=== PATIENT | male | born 1970 | race Caucasian/White ===

== ENCOUNTER 2021-12-24 18:00 | Inpatient (IN) | payer MEDICARE, OTHER ==
[2021-12-24 18:34] LABS: #Basophils 0.1 thou/uL (0.0-0.2); #Eosinphils 0.2 thou/uL (0.0-0.7); #Lymphocytes 4.6 thou/uL (1.20-3.40); #Monocytes 0.7 thou/uL (0.11-0.59); #Neutrophils 4.8 thou/uL (1.40-6.50); %Basophils 0.8 % (0.0-1.0); %Eosinophils 2.2 % (0.0-10.0); %Lymphocytes 43.8 % (21.0-51.0); %Monocytes 6.8 % (0.0-10.0); %Neutrophils 46.4 % (42.0-75.0); Hemoglobin 14.7 g/dL (14.0-18.0); Mean Corpuscular HGB CONC 32.4 g/dL (32.0-36.0); Mean Corpuscular Volume 89.4 fL (78.0-98.0); Mean Platelet Volume 7.9 fL (7.4-10.4); Platelet Count 329 thou/uL (130-400); RBC Distribution Width 12.7 % (11.5-14.5); Red Blood Cell (RBC) Count 5.07 mill/uL (4.70-6.10); White Blood Cell (WBC) Count 10.4 thou/uL (4.8-10.8)
[2021-12-24 19:02] LABS: ALT (SGPT) 48 U/L (8-55); AST (SGOT) 27 U/L (5-34); Albumin 4.1 g/dL (3.5-5.0); Alkaline Phosphatase 129 U/L (40-110); Anion Gap 16 mmol/L (10-20); BUN (Urea Nitrogen) 14 mg/dL (8.4-25.7); Bilirubin, Total 0.4 mg/dL (0.2-1.2); Calc. Creatinine Clearance 0 mL/min (70-130); Carbon Dioxide 22 mmol/L (22-29); Chloride 107 mmol/L (98-107); Estimated GFR 84; Globulin 3.5 g/dL (2.4-3.5); Glucose 118 mg/dL (70-105); Protein, Total 7.6 g/dL (6.0-8.3); Sodium 141 mmol/L (136-145)
[2021-12-24] MEDS ORDERED: Bisacodyl 5 MG TAB PO PRN (22:16)
[2021-12-24] MEDS ORDERED: HYDROcodone/Acetaminophen 7.5/325 mg Tablet PO PRN (22:16)
[2021-12-24] MEDS ORDERED: Dextrose 5% in Water 1,000 ML IV PRN (22:16)
[2021-12-24] MEDS ORDERED: Zolpidem Tartrate 5 MG TAB PO PRN (22:16)
[2021-12-24] MEDS ORDERED: Dextrose 50% Abboject 50 ML SYRINGE SLOW IVP PRN (22:16)
[2021-12-24] MEDS ORDERED: Acetaminophen 325 MG TAB PO PRN (22:16)
[2021-12-24] MEDS ORDERED: HumaLOG 300 UNITS/3 ML VIAL SC PRN ×2 (22:16)
[2021-12-24] MEDS ORDERED: Ondansetron PF 4 MG/2 ML Vial IVP PRN (22:16)
[2021-12-24] MEDS ORDERED: hydrALAZINE 20 MG/ML VIAL SLOW IVP PRN (22:18)
[2021-12-24] MEDS ORDERED: Nitroglycerin 0.4 MG TAB (25 Tab Bottle) SL PRN (22:18)
[2021-12-24] MEDS ORDERED: Morphine 2 MG/ML VIAL SLOW IVP PRN (22:18)
[2021-12-24] MEDS ORDERED: Sodium Chloride 0.9% 1,000 ML IV SCH (22:30)
[2021-12-24] MEDS ORDERED: Clopidogrel Bisulfate 75 MG TAB PO SCH (22:45)
[2021-12-24 22:50] LABS: Troponin I Less than 0.010 ng/mL (< 0.028)
[2021-12-25 00:23] VITALS: BMI 44.4
[2021-12-25 02:01] LABS: Troponin I Less than 0.010 ng/mL (< 0.028)
[2021-12-25 05:48] LABS: #Basophils 0.1 thou/uL (0.0-0.2); #Eosinphils 0.2 thou/uL (0.0-0.7); #Lymphocytes 3.3 thou/uL (1.20-3.40); #Monocytes 0.7 thou/uL (0.11-0.59); #Neutrophils 5.8 thou/uL (1.40-6.50); %Basophils 0.7 % (0.0-1.0); %Eosinophils 2.1 % (0.0-10.0); %Lymphocytes 32.8 % (21.0-51.0); %Monocytes 7.2 % (0.0-10.0); %Neutrophils 57.2 % (42.0-75.0); Mean Corpuscular HGB CONC 31.2 g/dL (32.0-36.0); Mean Corpuscular Hemoglobin 27.9 pg (27.0-31.0); Mean Corpuscular Volume 89.3 fL (78.0-98.0); Mean Platelet Volume 8.3 fL (7.4-10.4); Platelet Count 286 thou/uL (130-400); RBC Distribution Width 12.7 % (11.5-14.5); Red Blood Cell (RBC) Count 4.67 mill/uL (4.70-6.10); White Blood Cell (WBC) Count 10.1 thou/uL (4.8-10.8)
[2021-12-25 06:26] LABS: ALT (SGPT) 48 U/L (8-55); AST (SGOT) 25 U/L (5-34); Albumin 3.7 g/dL (3.5-5.0); Alkaline Phosphatase 115 U/L (40-110); Anion Gap 14 mmol/L (10-20); BUN (Urea Nitrogen) 13 mg/dL (8.4-25.7); Bilirubin, Total 0.4 mg/dL (0.2-1.2); Calc. Creatinine Clearance 192 mL/min (70-130); Carbon Dioxide 24 mmol/L (22-29); Chloride 106 mmol/L (98-107); Estimated GFR 104; Glucose 109 mg/dL (70-105); Protein, Total 6.7 g/dL (6.0-8.3); Sodium 140 mmol/L (136-145)
[2021-12-25 06:29] LABS: Troponin I Less than 0.010 ng/mL (< 0.028)
[2021-12-25] MEDS ORDERED: Communication Order-Pharmacy FS SCH (08:45)
[2021-12-25] MEDS ORDERED: Iopamidol 370 76% 100 ML VIAL ONE (08:53)
[2021-12-25] MEDS ORDERED: Enoxaparin Sodium 40 MG/0.4 ML SYRINGE SC SCH (09:00)
[2021-12-25] MEDS ORDERED: SERTRALINE HCL 150 MG PO SCH (09:00)
[2021-12-25] MEDS ORDERED: Non-Formulary Item 1 EACH (Cetirizine Hcl [Allergy Relief] 10 MG Capsule) PO SCH (09:00)
[2021-12-25] MEDS ORDERED: MULTIVITAMIN PO SCH (09:00)
[2021-12-25] MEDS: busPIRone HCl 10 MG TAB PO SCH ×3 (09:41→20:02)
[2021-12-25] MEDS: Aspirin 325 MG TAB PO SCH (09:41)
[2021-12-25] MEDS: Multivit, Therapeutic 1 TAB PO SCH (09:42)
[2021-12-25] MEDS: Losartan 25 MG TAB PO SCH (09:42)
[2021-12-25] MEDS: Loratadine 10 MG TAB PO SCH (09:42)
[2021-12-25] MEDS: Clopidogrel Bisulfate 75 MG TAB PO SCH (09:42)
[2021-12-25] MEDS ORDERED: Midazolam HCl 2 mg/2 ml Vial ONE (11:34)
[2021-12-25] MEDS ORDERED: Lidocaine 1% (PF) 30 ML VIAL ONE (11:34)
[2021-12-25] MEDS ORDERED: Fentanyl 100 MCG/2 ML VIAL ONE (11:34)
[2021-12-25] MEDS ORDERED: Sodium Chloride 0.9% 200 ML IV PRN (13:27)
[2021-12-25] MEDS ORDERED: Gabapentin 300 MG CAP PO SCH (21:00)
[2021-12-25] MEDS ORDERED: Atorvastatin Calcium 20 MG TAB PO SCH (21:00)
[2021-12-25] MEDS ORDERED: PRAZOSIN HCL 2 MG PO SCH (21:00)
[2021-12-25] MEDS ORDERED: Prazosin HCl 1 MG CAP PO SCH (21:00)
[2021-12-25] MEDS ORDERED: Mirtazapine 30 MG TAB PO SCH (21:00)
[2021-12-25] MEDS ORDERED: Rizatriptan Benzoate 10 MG MLT TAB PO SCH (21:00)
[2021-12-26 08:09] VITALS: BP 137/75; TEMP 97.8
[2021-12-26] MEDS: Aspirin 325 MG TAB PO SCH (08:47)
[2021-12-26] MEDS: busPIRone HCl 10 MG TAB PO SCH (08:48)
[2021-12-26] MEDS: Clopidogrel Bisulfate 75 MG TAB PO SCH (08:48)
[2021-12-26] MEDS: Losartan 25 MG TAB PO SCH (08:49)
[2021-12-26] MEDS: Loratadine 10 MG TAB PO SCH (08:51)
[2021-12-26] MEDS: Multivit, Therapeutic 1 TAB PO SCH (08:52)
== END 2021-12-26 11:10 | disposition home or self-care (01) | DRG 287 ==
LOC: ERS 18:00 → 2SW 21:26 → OBSVTOIN 12-25 17:15
PROVIDERS: ADMIT Internal Medicine; ATTEND Hospitalist
PROC: 4A023N7 Measurement of Cardiac Sampling and Pressure, Left Heart, Percutaneous Approach (ICD-10-PCS; principal; 2021-12-25)
PROC: B2111ZZ Fluoroscopy of Multiple Coronary Arteries using Low Osmolar Contrast (ICD-10-PCS; 2021-12-25)
PROC: B2151ZZ Fluoroscopy of Left Heart using Low Osmolar Contrast (ICD-10-PCS; 2021-12-25)
DX: R07.89 Other chest pain (principal); Z68.41 Body mass index [BMI] 40.0-44.9, adult; I10 Essential (primary) hypertension; E11.9 Type 2 diabetes mellitus without complications; E78.5 Hyperlipidemia, unspecified; F41.9 Anxiety disorder, unspecified; F32.A Depression, unspecified; E66.01 Morbid (severe) obesity due to excess calories; K21.9 Gastro-esophageal reflux disease without esophagitis; G43.909 Migraine, unspecified, not intractable, without status migrainosus; E78.00 Pure hypercholesterolemia, unspecified; F43.10 Post-traumatic stress disorder, unspecified; Z20.822 Contact with and (suspected) exposure to COVID-19; Z88.5 Allergy status to narcotic agent; Z79.82 Long term (current) use of aspirin; Z98.52 Vasectomy status; Z79.899 Other long term (current) drug therapy; I25.2 Old myocardial infarction
CPT/HCPCS: 36415; 36416; 71045; 76705; 80053; 84484; 85025; 85379; 93005; 93458; 94760; 99152; G0378; J2001; J2250; J3010; J7050; Q9967; U0003; U0005